=== PATIENT | male | born 1980 | race Caucasian/White ===

== ENCOUNTER 2017-08-04 14:00 | Emergency (ER) | payer BC, OTHER ==
[~2017-08-04] VITALS: Ht 188 cm; Wt 156.0 kg
[2017-08-04 14:05] VITALS: TEMP 37.8; Ht 188 cm; Wt 156.0 kg
[2017-08-04] MEDS ORDERED: SODIUM CHLORIDE 0.9% 1000ML 1,000 ML IV STA ×2 (14:24→17:22)
[2017-08-04] MEDS ORDERED: ALBUT/IPRATROP 3MG/0.5MG NEB 3 ML VIAL INH STA (14:24)
[2017-08-04] MEDS ORDERED: ONDANSETRON INJ 2 MG/ML 2 ML VIAL IV STA (14:24)
--- NOTE | 2017-08-04 14:39 | EMERGENCY ROOM VISIT NOTE ---
ED Visit Note First contact with patient: 14:13 CHIEF COMPLAINT: Cough, shortness of breath, fatigue HISTORY OF PRESENTING ILLNESS: This is a 37-year-old male who presents to the emergency department with complaint of cough and bronchitis symptoms for the past 2 and half weeks. Patient states that he was unable to see his doctor, but he did have a leftover Z-Ronak that he took, he states he finished this 3 days ago but has not improved at all. He has been feeling short of breath for the past few days and feels like he is "gasping for air" at times. He has also been feeling like his chest is tight, he describes like a band wrapped around his whole chest squeezing, this is worse with coughing and taking a deep breath. He states that he has been coughing up some phlegm, but denies coughing up any blood. He reports generalized body aches and fatigue, has had some chills off and on, he is unsure if he has had any fevers. He has not taken any antipyretics today. He has had some intermittent headaches, has taken naproxen for this and this has helped, he denies any headache currently. He does also report today that he has been feeling more nauseated, and had 2 episodes of loose stools this morning, he denies any bloody or watery stools. He denies any urinary symptoms. He denies any unusual rash. He does report positive sick contacts with URI symptoms, and also states that he is a mailman and a sober caterpillar driver, so he feels he has a lot of potential sick contact exposure. He did not receive a flu shot this year. He reports a history of hypertension, but denies taking any medications for this. He denies any history of lung problems. REVIEW OF SYSTEMS: A complete 10 point review of systems was reviewed with the patient with pertinent positives and negatives as per history of present illness. All else were negative. PAST MEDICAL HISTORY: Hypertension, no other significant medical or surgical history. SOCIAL HISTORY: Lives at home. Denies tobacco use. ALLERGIES: No known allergies. PHYSICAL EXAM: CONSTITUTIONAL: Pleasant and cooperative. Nontoxic appearing and in no acute distress. Mildly dehydrated, but otherwise well appearing and well nourished. HEENT: Normocephalic, atraumatic. Pupils equal, round and reactive to light, EOMI, normal conjunctiva bilaterally. TMs normal. Pharynx normal. Tacky mucous membranes. NECK: Supple, full active range of motion without discomfort. No cervical adenopathy. RESPIRATORY: Diminished in the bases, but otherwise clear to auscultation bilaterally with no wheezing, crackles, rhonchi or stridor. Equal expansion bilaterally. CARDIOVASCULAR: Tachycardic. Regular rhythm with no murmurs, rubs or gallops. Normal peripheral perfusion. No edema. GASTROINTESTINAL: Soft, nontender, nondistended, obese. No rebound tenderness or guarding. No palpable masses or HSM. Bowel sounds present in all quadrants. No CVA tenderness bilaterally. MUSCULOSKELETAL: Full range of motion of all joints without discomfort. No calf tenderness or swelling. INTEGUMENTARY: No rash or other significant dermatologic conditions noted. NEUROLOGIC: Alert and oriented X 4 with normal affect. Normal strength and sensation in all 4 extremities. No focal neurologic deficits noted. Normal speech. Normal gait observed. ED COURSE AND MEDICAL DECISION MAKING: CC: Patient presenting with complaint of cough, shortness of breath, fatigue DIFFERENTIAL DIAGNOSIS: Includes, but not limited to viral URI, bronchitis, pneumonia, influenza, pericarditis, PE, dehydration, among others. INTERPRETATION OF LABS: No leukocytosis, no anemia, no significant electrolyte abnormalities, normal renal function, normal liver enzymes. Influenza A/B is negative. UA negative. IMAGIN view chest x-ray was reviewed by myself and radiologist and shows no acute abnormalities, specifically no pneumonia or pulmonary edema by my interpretation. ----- (CHEST FOR PE) ANGIO WITH CT DOSE: 719.05 mGy.cm HISTORY: 37 years-old Male presents with acute shortness of breath, headache and fatigue TECHNIQUE: Multiple CTA images of the chest were obtained after the intravenous administration of 94 ml Optiray 320. Coronal and sagittal MIPS were obtained from the axial data set and were submitted for review. A dose lowering technique was utilized adhering to the principles of ALARA. COMPARISON: Chest radiograph of same day FINDINGS: CTA: Heart is normal in size without pericardial effusion. Thoracic aorta is normal in both course and caliber without aneurysm or dissection. The imaged great vessels appear patent. There is suboptimal contrast opacification of the pulmonary arterial tree with the lobar, segmental and subsegmental branches not opacified. No central pulmonary thromboemboli. CT CHEST: No dominant thyroid nodule or pathologic adenopathy identified. No pneumothorax, pleural effusion or focal airspace consolidation. No suspicious pulmonary nodules or masses. Central airways are patent. Hepatomegaly with hepatic steatosis. No acute process of the imaged upper abdomen. Soft tissues are unremarkable. Bones appear intact. Degenerative changes of the sternoclavicular joints. Multilevel endplate spurring about the spine. IMPRESSION: 1. Suboptimal contrast opacification of the pulmonary arterial tree secondary to contrast bolus timing. No evidence of central pulmonary thromboembolic disease. 2. No focal airspace consolidation or pathologic adenopathy. 3. Hepatomegaly with hepatic steatosis. EKG: Shows sinus tachycardia with a rate of 105 bpm, no acute ischemic changes by my interpretation. No previous EKGs available for comparison. MEDICATION RECONCILIATION: I attest that I have personally reviewed the patient 's current medication list. INITIAL VITAL SIGNS REVIEW: I reviewed the patient's initial vital signs and interpret them as follows: T: Afebrile; BP: Hypertensive; HR: Tachycardic; RR : Mildly tachypneic; Pulse Ox: Within normal limits on room air. Blood pressure screening: The patient was found to have an elevated blood pressure and was referred to their primary doctor for recheck and further treatment. SUMMARY: Patient was evaluated at bedside, history and physical exam performed. Patient is alert and oriented, in no acute distress, resting calmly in stretcher. Patient does appear mildly dehydrated, and is noted to be tachycardic on exam. Patient is mildly tachypneic, but no labored breathing or accessory muscle use. Lungs are diminished but otherwise clear. EKG shows sinus tachycardia with no acute ischemic changes. Orders were placed at bedside for labs, UA, influenza, orthostatic vital signs, IV fluids for hydration, chest x-ray to evaluate for cardiopulmonary disease. Motrin for body aches and low-grade fever. DuoNeb treatment for shortness of breath and cough. Patient discussed with Dr. De Leon, who agrees with my assessment and plan. Labs and imaging reviewed as above, fairly unremarkable, no pneumonia. I reassessed the patient, he states that his body aches are feeling better, but he still feels short of breath and did not feel improved after the DuoNeb treatment. I suspect the patient most likely has a viral bronchitis, but cannot fully rule out a PE given the patient's persistent shortness of breath and tachycardia. I discussed with the patient the option of performing a CT to rule out a PE, he was agreeable to this plan, CT of the chest was ordered. CT of the chest was reviewed, no evidence for PE or other pulmonary abnormality. Patient reassessed multiple times throughout ED stay, he states he is now feeling a little bit better. His tachycardia and hypertension are downtrending after pain medication and IV fluids. I suspect patient's symptoms are secondary to a viral bronchitis. He was provided with an albuterol inhaler and spacer, and does report some improvement after its use. Patient was updated on all results and plan for discharge, he was encouraged to follow closely with his primary care provider. Patient was also given strict return precautions should his symptoms worsen, he verbalized understanding. Patient was discharged home in stable condition and ambulatory. Current/Historical Medications No Active Prescriptions or Reported Meds Allergies Coded Allergies: No Known Allergies (Unverified , 08/04/17) Vital Signs Date Time Temp Pulse Resp B/P (MAP) Pulse Ox O2 Delivery O2 Flow Rate FiO2 08/04/17 19:43 108 18 164/94 96 08/04/17 18:15 103 20 166/92 95 Room Air 08/04/17 16:55 98 18 162/98 100 Room Air 08/04/17 15:46 100 20 186/105 99 Room Air 08/04/17 14:51 102 205/99 108 192/104 114 154/102 08/04/17 14:05 37.8 119 22 190/108 98 Room Air Laboratory Results 08/04/17 14:55 Red Blood Count 5.30, Mean Corpuscular Volume 83.4, Mean Corpuscular Hemoglobin 31.1, Mean Corpuscular Hemoglobin Concent 37.3, Mean Platelet Volume 9.4, Neutrophils (%) (Auto) 89.6, Lymphocytes (%) (Auto) 5.2, Monocytes (%) (Auto) 4.0, Eosinophils (%) (Auto) 1.0, Basophils (%) (Auto) 0.0, Neutrophils # (Auto) 9.41, Lymphocytes # (Auto) 0.55, Monocytes # (Auto) 0.42, Eosinophils # (Auto) 0.10, Basophils # (Auto) 0.00 08/04/17 14:55 Test 08/04/17 14:55 08/04/17 15:00 08/04/17 15:45 White Blood Count 10.50 K/uL (4.8-10.8) Red Blood Count 5.30 M/uL (4.7-6.1) Hemoglobin 16.5 g/dL (14.0-18.0) Hematocrit 44.2 % (42-52) Mean Corpuscular Volume 83.4 fL (80-100) Mean Corpuscular Hemoglobin 31.1 pg (25-34) Mean Corpuscular Hemoglobin Concent 37.3 g/dl (32-36) Platelet Count 206 K/uL (130-400) Mean Platelet Volume 9.4 fL (7.4-10.4) Neutrophils (%) (Auto) 89.6 % Lymphocytes (%) (Auto) 5.2 % Monocytes (%) (Auto) 4.0 % Eosinophils (%) (Auto) 1.0 % Basophils (%) (Auto) 0.0 % Neutrophils # (Auto) 9.41 K/uL (1.4-6.5) Lymphocytes # (Auto) 0.55 K/uL (1.2-3.4) Monocytes # (Auto) 0.42 K/uL (0.11-0.59) Eosinophils # (Auto) 0.10 K/uL (0-0.5) Basophils # (Auto) 0.00 K/uL (0-0.2) RDW Standard Deviation 37.9 fL (36.4-46.3) RDW Coefficient of Variation 12.6 % (11.5-14.5) Immature Granulocyte % (Auto) 0.2 % Immature Granulocyte # (Auto) 0.02 K/uL (0.00-0.02) Anion Gap 9.0 mmol/L (3-11) Est Creatinine Clear Calc Drug Dose 172.1 ml/min Estimated GFR () 121.9 Estimated GFR (Non- 105.1 BUN/Creatinine Ratio 16.2 (10-20) Calcium Level 8.4 mg/dl (8.5-10.1) Total Bilirubin 0.7 mg/dl (0.2-1) Aspartate Amino Transf (AST/SGOT) 97 U/L (15-37) Alanine Aminotransferase (ALT/SGPT) 106 U/L (12-78) Alkaline Phosphatase 66 U/L (45-117) Total Protein 7.5 gm/dl (6.4-8.2) Albumin 3.9 gm/dl (3.4-5.0) Globulin 3.6 gm/dl (2.5-4.0) Albumin/Globulin Ratio 1.1 (0.9-2) Influenza Type A Antigen Neg for Influ A (NEG) Influenza Type B Antigen Neg for Influ B (NEG) Urine Color YELLOW Urine Appearance CLEAR (CLEAR) Urine pH 5.0 (4.5-7.5) Urine Specific [place] 1.022 (1.000-1.030) Urine Protein NEG (NEG) Urine Glucose (UA) NEG (NEG) Urine Ketones NEG (NEG) Urine Occult Blood NEG (NEG) Urine Nitrite NEG (NEG) Urine Bilirubin NEG (NEG) Urine Urobilinogen NEG (NEG) Urine Leukocyte Esterase NEG (NEG) Medications Administered Medications (Trade) Dose Ordered Sig/Cherelle Route Start Time Stop Time Status Last Admin Dose Admin Albuterol/ Ipratropium (Duoneb) 3 ml NOW STAT INH 08/04/17 14:24 08/04/17 14:27 DC 08/04/17 14:43 3 ML Sodium Chloride 1,000 ml @ 999 mls/hr Q1H1M STAT IV 08/04/17 14:24 08/04/17 15:24 DC 08/04/17 14:50 999 MLS/HR Ondansetron HCl (Zofran Inj) 4 mg NOW STAT IV 08/04/17 14:24 08/04/17 14:27 DC 08/04/17 14:43 4 MG Ibuprofen (Motrin Tab) 800 mg NOW STAT PO 08/04/17 15:48 08/04/17 15:49 DC 08/04/17 15:53 800 MG Sodium Chloride 1,000 ml @ 999 mls/hr Q1H1M STAT IV 08/04/17 17:22 08/04/17 18:22 DC 08/04/17 17:22 999 MLS/HR Albuterol (Ventolin Hfa Inhaler) 2 puffs NOW ONCE INH 08/04/17 19:00 08/04/17 19:01 DC 08/04/17 19:42 2 PUFFS Departure Information Impression Primary Impression: Dehydration Additional Impression: Acute viral bronchitis Dispostion Home / Self-Care Condition GOOD Prescriptions No Active Prescriptions or Reported Meds Referrals Liborio Tracy M.D. (PCP) Patient Instructions ED Bronchitis Asthmatic, ED Dehydration, ED URI Viral, My [facility] [address] Additional Instructions You have been evaluated in the emergency department for your cough and shortness of breath. There is no evidence of pneumonia on your chest x-ray. There is no evidence of blood clots in the lung on chest CT. You most likely have a viral bronchitis. Respiratory symptoms and cough from bronchitis may last several weeks. Use the albuterol inhaler TWO puffs every 4 hours as needed for cough, wheezing , chest tightness. You should also use this before bed to help prevent coughing so that you can sleep better at night. For body aches or fevers, you can use the following [id number] medicines ( if >12 yo): - Regular strength (325mg/tab) Tylenol (acetaminophen) 2 tabs every 4-6 hours as needed. Do not exceed 10 tablets in a 24 hour period. Avoid taking more than 3000 mg of Tylenol per day. This includes any other sources of acetaminophen you may take on a regular basis. - Regular strength (200 mg/tab) Advil (ibuprofen) 3 tabs every 6-8 hours as needed. Do not exceed a dose of 2400 mg per day. - For best results, alternate dosing of Tylenol and Advil. Drink plenty of fluids to stay well hydrated. Please follow-up with your primary care provider in the next few days to be rechecked if your symptoms are not getting any better. Please return to the emergency department if your symptoms worsen over the next 2-3 days despite treatment course outlined above. Return to the emergency department if you develop the following symptoms of: inability to swallow solids , liquids, or drool; excessive wheezing or inability to catch your breath; worsening chest pain, coughing up blood, severe dizziness or passing out; fever or pain that becomes unmanageable with [id number] medications; or any other concerns. Work Instructions Return To Work: 2 days Problem Qualifiers
[2017-08-04 15:09] LABS: HEMATOCRIT 44.2 % (42-52); HEMOGLOBIN 16.5 g/dL (14.0-18.0); IG# 0.02 K/uL (0.00-0.02); LYMPH % 5.2 %; LYMPH ABS # 0.55 K/uL (1.2-3.4); MEAN CELL VOLUME 83.4 fL (80-100); MEAN CORPUSCULAR HEMOGLOBIN 31.1 pg (25-34); MEAN CORPUSCULAR HGB CONC 37.3 g/dl (32-36); MEAN PLATELET VOLUME 9.4 fL (7.4-10.4); MONO ABS # 0.42 K/uL (0.11-0.59); NEUT % 89.6 %; NEUT ABS # 9.41 K/uL (1.4-6.5); PLATELET COUNT 206 K/uL (130-400); RED CELL DISTRIBUTION WIDTH CV 12.6 % (11.5-14.5); RED CELL DISTRIBUTION WIDTH SD 37.9 fL (36.4-46.3)
[2017-08-04 15:26] LABS: ALBUMIN 3.9 gm/dl (3.4-5.0); CALCIUM 8.4 mg/dl (8.5-10.1); CREATININE 0.92 mg/dl (0.60-1.40); POTASSIUM 4.2 mmol/L (3.5-5.1)
[2017-08-04 15:29] LABS: TOTAL PROTEIN 7.5 gm/dl (6.4-8.2)
[2017-08-04] MEDS ORDERED: IBUPROFEN 800 MG TAB PO STA (15:48)
--- NOTE | 2017-08-04 15:54 | DIAGNOSTIC IMAGING REPORT ---
CHEST 2 VIEWS ROUTINE HISTORY: 37 years-old Male EVALUATE RESPIRATORY DISTRESS.DYSPNEA acute respiratory distress COMPARISON: None available TECHNIQUE: PA and lateral views of the chest FINDINGS: Cardiomediastinal and hilar silhouettes are within normal limits. There is no pneumothorax, pleural effusion, focal airspace consolidation or overt pulmonary edema. The bones of the chest appear grossly intact. Mild degenerative changes about the spine and shoulders. IMPRESSION: No acute process. The above report was generated using voice recognition software. It may contain grammatical, syntax or spelling errors. Electronically signed by: Vijay Bradley M.D. 08/04/2017 3:52 PM Dictated Date/Time: 08/04/2017 3:51 PM
[2017-08-04 16:09] LABS: INFLUENZA B ANTIGEN Neg for Influ B (NEG)
[2017-08-04] MEDS ORDERED: OPTIRAY 320 IV PRN (17:30)
--- NOTE | 2017-08-04 18:25 | DIAGNOSTIC IMAGING REPORT ---
(CHEST FOR PE) ANGIO WITH CT DOSE: 719.05 mGy.cm HISTORY: 37 years-old Male presents with acute shortness of breath, headache and fatigue TECHNIQUE: Multiple CTA images of the chest were obtained after the intravenous administration of 94 ml Optiray 320. Coronal and sagittal MIPS were obtained from the axial data set and were submitted for review. A dose lowering technique was utilized adhering to the principles of ALARA. COMPARISON: Chest radiograph of same day FINDINGS: CTA: Heart is normal in size without pericardial effusion. Thoracic aorta is normal in both course and caliber without aneurysm or dissection. The imaged great vessels appear patent. There is suboptimal contrast opacification of the pulmonary arterial tree with the lobar, segmental and subsegmental branches not opacified. No central pulmonary thromboemboli. CT CHEST: No dominant thyroid nodule or pathologic adenopathy identified. No pneumothorax, pleural effusion or focal airspace consolidation. No suspicious pulmonary nodules or masses. Central airways are patent. Hepatomegaly with hepatic steatosis. No acute process of the imaged upper abdomen. Soft tissues are unremarkable. Bones appear intact. Degenerative changes of the sternoclavicular joints. Multilevel endplate spurring about the spine. IMPRESSION: 1. Suboptimal contrast opacification of the pulmonary arterial tree secondary to contrast bolus timing. No evidence of central pulmonary thromboembolic disease. 2. No focal airspace consolidation or pathologic adenopathy. 3. Hepatomegaly with hepatic steatosis. The above report was generated using voice recognition software. It may contain grammatical, syntax or spelling errors. Electronically signed by: Vijay Bradley M.D. 08/04/2017 6:24 PM Dictated Date/Time: 08/04/2017 6:15 PM
[2017-08-04] MEDS ORDERED: ALBUTEROL HFA 8 GM INHALER INH ONE (19:00)
[2017-08-04 19:43] VITALS: BP 164/94; PULSE 108; O2SAT 96
== END 2017-08-04 19:44 | disposition home or self-care (01) ==
LOC: C.EDB 14:02
DX: J20.8 Acute bronchitis due to other specified organisms (principal); E86.0 Dehydration; I10 Essential (primary) hypertension